=== PATIENT | female | born 1985 | race Caucasian/White ===

== ENCOUNTER 2023-04-23 14:48 | Emergency (ER) | payer MEDICAID ==
[~2023-04-23] VITALS: Ht 162.6 cm; Wt 55.0 kg
[2023-04-23 14:53] VITALS: O2SAT 98
[2023-04-23] MEDS ORDERED: CEPH500C2 MT (15:43)
[2023-04-23] MEDS ORDERED: IBUP-2029 MT (15:43)
[2023-04-23] MEDS ORDERED: KETOROLAC 60MG/2ML VIAL IM ONE (15:45)
[2023-04-23 15:56] VITALS: BP 106/69; PULSE 80; RESP 18; TEMP 98.7
== END 2023-04-23 16:12 | disposition home or self-care (01) ==
LOC: ER 14:48
DX: L02.411 Cutaneous abscess of right axilla (principal); Z88.5 Allergy status to narcotic agent
CPT/HCPCS: 99283; J1885